=== PATIENT | female | born 2000 | race Caucasian/White ===

== ENCOUNTER 2023-09-10 11:38 | Emergency (ER) | payer OTHER, SELFPAY ==
--- NOTE | ~2023-09-10 | XR_ITS ---
EXAMINATION: XR elbow LT min 3V DATE: 09/10/2023 12:01 INDICATION: Left elbow injury. Fall. TECHNIQUE: 5 views of left elbow were obtained. COMPARISON: None. FINDINGS: Bone alignment is normal. No fracture. Joint spaces are normal. There is an elbow joint eff usion. IMPRESSION: 1. Elbow joint effusion. No fracture identified. Reviewed, dictated and finalized at location A.
--- NOTE | 2023-09-10 11:48 | ED.FALL ---
HPI - Fall General Chief Complaint: Extremity Injury, Upper Stated Complaint: fall Source: patient and RN notes reviewed Mode of arrival: ambulatory Limitations: no limitations History of Present Illness HPI Narrative: Patient is a 22-year-old female who presents to the [facility] with complaints of left elbow pain after fall that occurred yesterday. Patient states that she was wearing socks on her wood floor with she slipped and landed on her left elbow. She reports constant aching to the area. There is mild swelling noted. Patient has full range of motion of her elbow but states that she has discomfort with movement. She is neurovascularly intact distally. She denies any other injury. Denies hitting her head or loss of consciousness. Denies neck or back pain. Related Data Allergies Allergy/AdvReac Type Severity Reaction Status Date / Time Penicillins Allergy Mild Rash Verified 09/10/23 11:56 Review of Systems Review of Systems: CONSTITUTIONAL: Denies fever, chills, or sweats. EYES: Denies visual changes, redness, or discharge. ENT: Denies otalgia and sore throat CARDIOVASCULAR: Denies chest pain, palpitations, or edema. RESPIRATORY: Denies cough or dyspnea. GASTROINTESTINAL: Denies abdominal pain, nausea, vomiting, or diarrhea. GENITOURINARY: Denies dysuria or hematuria. SKIN: Denies rash or itching. MUSCULOSKELETAL: Denies back pain or myalgia. Reports left elbow pain. NEUROLOGIC: Denies headache, numbness, or weakness. Pertinent positives per HPI. PMFSH Comments At the time of my signature, I reviewed and agree with the nursing past medical, surgical, social, and family history. There is no relevant family history pertinent to the patient complaint. Exam Narrative: GENERAL: This is a well-nourished, well-developed patient, in no apparent distress. HEAD: normocephalic, atraumatic. EYES: PERRL. Sclera clear/white. Vision is grossly intact. EARS: External ears normal, auditory canals clear and without drainage, TMs normal without perforation. Hearing grossly intact. NOSE: External nose normal with no obvious nasal discharge, nares without redness, no rhinorrhea. THROAT: Mucous membranes moist, posterior pharynx clear. NECK: Neck supple, non-tender without lymphadenopathy, masses or thyromegaly. CARDIOVASCULAR: Regular rate and rhythm without murmurs, gallops, or rubs. RESPIRATORY: Clear to auscultation. Breath sounds equal bilaterally. No wheezes, rales, or rhonchi. GASTROINTESTINAL: Abdomen soft, non-tender, nondistended. Bowel sounds are active. No hepato-splenomegaly, or palpable masses. No guarding. SKIN: warm, intact with no suspicious lesions or rash, good texture and turgor. NEURO: awake, alert, and oriented to person, place and time. There were no obvious focal neurologic abnormalities. EXTREMITIES: No clubbing, cyanosis, or edema. The elbow is swollen but not deformed on inspection. The range of motion is limited in all directions because of the pain. There is no tenderness over the head of the radius. Supination and pronation of the forearm is not painful. The skin is intact and there is no swelling over the olecranon process. Distal neurovascular and motor status intact. BACK: Nontender without deformity or crepitance. No flank tenderness. Course Course Level of Care: Express Care Visit Vital Signs Vital signs: Vital Signs Temperature 97.8 F 09/10/23 11:53 Pulse Rate 99 09/10/23 11:53 Respiratory Rate 16 09/10/23 11:53 Blood Pressure 109/81 09/10/23 11:53 Pulse Oximetry 100 09/10/23 11:53 Temperature 97.8 F 09/10/23 11:53 Pulse Rate 99 09/10/23 11:53 Respiratory Rate 16 09/10/23 11:53 Blood Pressure 109/81 09/10/23 11:53 Pulse Oximetry 100 09/10/23 11:53 Reviewed MDM - Fall MDM Narrative Medical decision making narrative: Use the RICE method at home. May take ibuprofen and/or Tylenol if needed. If symptoms persist in 1 week after conser
[2023-09-10 11:53] VITALS: BP 109/81; PULSE 99; RESP 16; TEMP 36.6; O2SAT 100
== END 2023-09-10 12:20 | disposition home or self-care (01) ==
PROVIDERS: Emergency Provider Nurse Practitioner
DX: S50.02XA Contusion of left elbow, initial encounter (principal); W01.0XXA Fall on same level from slipping, tripping and stumbling without subsequent striking against object, initial encounter
CPT/HCPCS: 73080; 99203; G0463